=== PATIENT | male | born 1960 | race Hispanic/Latino ===

== ENCOUNTER 2024-01-31 17:57 | Emergency (ER) | payer SELFPAY ==
[2024-01-31] MEDS ORDERED: Ibuprofen 200 MG TAB ONE (18:35)
== END 2024-01-31 21:05 | disposition home or self-care (01) ==
LOC: CSHERS 17:57
DX: S80.12XA Contusion of left lower leg, initial encounter (principal); S49.92XA Unspecified injury of left shoulder and upper arm, initial encounter; I10 Essential (primary) hypertension; E11.9 Type 2 diabetes mellitus without complications; Y04.0XXA Assault by unarmed brawl or fight, initial encounter
CPT/HCPCS: 99283